=== PATIENT | male | born 1965 | race African-American/Black ===

== ENCOUNTER 2016-07-08 22:54 | Emergency (ER) | payer MEDICARE, OTHER ==
[~2016-07-08] VITALS: Ht 172.7 cm; Wt 70.0 kg
[~2016-07-08 22:54] MED LIST: BENZ1TAB PO; HALO5 PO; HALO5P IJ; LISI20 PO; NORC7.5T PO; OXYC1SOL5 PO
[2016-07-08 23:16] VITALS: BP 117/60; PULSE 85; RESP 15; TEMP 98.4; O2SAT 96
[2016-07-09] MEDS ORDERED: BENZ2TAB PO (04:50)
[2016-07-09] MEDS ORDERED: LISI-515 PO (04:50)
[2016-07-09] MEDS ORDERED: HALD50IN IM (04:50)
[2016-07-09] MEDS ORDERED: KETOROLAC TROMETHAMINE 60 MG/2 ML (IM) VIAL IM ONE (05:45)
--- NOTE | 2016-07-09 05:52 | PD ---
HPI Chief Complaint: GI Complaint Time Seen by Provider: 04:49 Travel History International Travel<30 days: No Contact w/Intl Traveler<30days: No Traveled to known affect area: No History of Present Illness HPI 50yo M with PMH of depression and bipolar disorder presents to the ED with c/o right lower back pain since 9pm last night. States pain is localized, constant and worst with movement. Pain is improved with acetaminophen and advil. Denies any fever, chest pain, sob, n/v, abdominal pain, focal weakness or numbness, trauma, or IVDA. PFSH Past Medical History Anemia: Yes Arthritis: No Asthma: No Autoimmune Disease: No Blood Disorders: Yes Bipolar Disorder: Yes Anxiety: Yes Depression: Yes Cancer: No Cardiovascular Problems: Yes (HTN) High Cholesterol: No Chest Pain: No Congestive Heart Failure: No COPD: No Cerebrovascular Accident: No Diabetes: Yes Patient Takes Glucophage: No Diminished Hearing: No Endocrine: No Gastrointestinal Disorders: No GERD: No Glaucoma: No Genitourinary: No Headaches: No Hepatitis: No Hiatal Hernia: No Hypertension: Yes Immune Disorder: No Implanted Vascular Access Dvce: No Kidney Stones: No Musculoskeletal: No Neurologic: No Psychiatric: Yes Reproductive: No Respiratory: No Integumentary: No Immunizations Current: Yes Migraines: No Myocardial Infarction: No Radiation Therapy: No Renal Failure: No Schizophrenia: Yes Seizures: No Sickle Cell Disease: Yes Sleep Apnea: No Thyroid Disease: No Ulcer: No PNEUMOCCOCAL Vaccine (Year): 3 Past Surgical History Abdominal Surgery: No AICD: No Appendectomy: No Arteriovenous Shunt: No Cardiac Surgery: No Cholecystectomy: No Ear Surgery: No Endocrine Surgery: No Eye Surgery: No Genitourinary Surgery: No Gynecologic Surgery: No Insulin Pump: No Joint Replacement: No Neurologic Surgery: No Oral Surgery: No Pacemaker: No Thoracic Surgery: No Other Surgery: Yes Social History Alcohol Use: Yes (beer ) Tobacco Use: Yes (1ppd) Substance Use: No Allergies-Medications (Allergen,Severity, Reaction): Coded Allergies: No Known Allergies (Verified , 07/09/16) Reported Meds & Prescriptions Reported Meds & Active Scripts Active Reported Lisinopril 20 Mg Tab 20 Mg PO DAILY Haldol Decanoate Inj (Haloperidol Decanoate) 50 Mg/Ml Inj 50 Mg IM Q28D Benztropine (Benztropine Mesylate) 2 Mg Tab 2 Mg PO BID Review of Systems Except as stated in HPI: all other systems reviewed are Neg Physical Exam Narrative GENERAL: 50yo M not in distress. SKIN: Focused skin assessment warm/dry. HEAD: Atraumatic. Normocephalic. CARDIOVASCULAR: Regular rate and rhythm. No murmur appreciated. RESPIRATORY: No accessory muscle use. Clear to auscultation. Breath sounds equal bilaterally. GASTROINTESTINAL: Abdomen soft, non-tender, nondistended. No rebound tenderness or guarding. BACK: No midline ttp thoracic or lumbar spine. No CVA tenderness. +TTP right paraspinal muscle L4-L5. MUSCULOSKELETAL: No obvious deformities. No clubbing. No cyanosis. No edema. NEUROLOGICAL: Awake and alert. No obvious cranial nerve deficits. Motor grossly within normal limits. Normal speech. PSYCHIATRIC: Appropriate mood and affect; insight and judgment normal. Data Data Last Documented VS Vital Signs Date Time Temp Pulse Resp B/P Pulse Ox O2 Delivery O2 Flow Rate FiO2 07/08/16 23:16 98.4 85 15 117/60 96 Room Air Orders Complete Blood Count With Diff (07/09/16 05:33) Basic Metabolic Panel (Bmp) (07/09/16 05:33) Urinalysis - C+S If Indicated (07/09/16 05:33) Ketorolac Inj (Toradol Inj) (07/09/16 05:45) Labs Laboratory Tests Test 07/09/16 07/09/16 05:33 05:50 White Blood Count 4.8 TH/MM3 Red Blood Count 4.16 MIL/MM3 Hemoglobin 12.6 GM/DL Hematocrit 37.3 % Mean Corpuscular Volume 89.8 FL Mean Corpuscular Hemoglobin 30.4 PG Mean Corpuscular Hemoglobin 33.8 % Concent Red Cell Distribution Width 14.7 % Platelet Count 222 TH/MM3 Mean Platelet Volume 8.1 FL Neutrophils (%) (Auto) 57.6 % Lymphocytes (%) (Auto) 30.4 % Monocytes (%) (Auto) 7.8 % Eosinophils (%) (Auto) 3.6 % Basophils (%) (Auto) 0.6 % Neutrophils # (Auto) 2.8 TH/MM3 Lymphocytes # (Auto) 1.5 TH/MM3 Monocytes # (Auto) 0.4 TH/MM3 Eosinophils # (Auto) 0.2 TH/MM3 Basophils # (Auto) 0.0 TH/MM3 CBC Comment DIFF FINAL Differential Comment Urine Color YELLOW Urine Turbidity CLEAR Urine pH 6.0 Urine Specific [place] 1.011 Urine Protein NEG mg/dL Urine Glucose (UA) NEG mg/dL Urine Ketones NEG mg/dL Urine Occult Blood NEG Urine Nitrite NEG Urine Bilirubin NEG Urine Urobilinogen LESS THAN 2.0 MG/DL Urine Leukocyte Esterase NEG Urine RBC LESS THAN 1 /hpf Urine WBC LESS THAN 1 /hpf Urine Squamous Epithelial <1 /hpf Cells Microscopic Urinalysis Comment CULT NOT INDICATED Sodium Level 140 MEQ/L Potassium Level 4.0 MEQ/L Chloride Level 107 MEQ/L Carbon Dioxide Level 27.0 MEQ/L Anion Gap 6 MEQ/L Blood Urea Nitrogen 11 MG/DL Creatinine 0.95 MG/DL Estimat Glomerular Filtration 102 ML/MIN Rate Random Glucose 89 MG/DL Calcium Level 9.3 MG/DL [facility] Medical Decision Making Medical Screen Exam Complete: Yes Emergency Medical Condition: Yes Interpretation(s) Laboratory Tests Test 07/09/16 07/09/16 05:33 05:50 White Blood Count 4.8 TH/MM3 (4.0-11.0) Red Blood Count 4.16 MIL/MM3 (4.50-5.90) Hemoglobin 12.6 GM/DL (13.0-17.0) Hematocrit 37.3 % (39.0-51.0) Mean Corpuscular Volume 89.8 FL (80.0-100.0) Mean Corpuscular Hemoglobin 30.4 PG (27.0-34.0) Mean Corpuscular Hemoglobin 33.8 % Concent (32.0-36.0) Red Cell Distribution Width 14.7 % (11.6-17.2) Platelet Count 222 TH/MM3 (150-450) Mean Platelet Volume 8.1 FL (7.0-11.0) Neutrophils (%) (Auto) 57.6 % (16.0-70.0) Lymphocytes (%) (Auto) 30.4 % (9.0-44.0) Monocytes (%) (Auto) 7.8 % (0.0-8.0) Eosinophils (%) (Auto) 3.6 % (0.0-4.0) Basophils (%) (Auto) 0.6 % (0.0-2.0) Neutrophils # (Auto) 2.8 TH/MM3 (1.8-7.7) Lymphocytes # (Auto) 1.5 TH/MM3 (1.0-4.8) Monocytes # (Auto) 0.4 TH/MM3 (0-0.9) Eosinophils # (Auto) 0.2 TH/MM3 (0-0.4) Basophils # (Auto) 0.0 TH/MM3 (0-0.2) CBC Comment DIFF FINAL Differential Comment Urine Color YELLOW (YELLW/STRAW) Urine Turbidity CLEAR (CLEAR) Urine pH 6.0 (5.0-8.5) Urine Specific [place] 1.011 (1.002-1.035) Urine Protein NEG mg/dL (NEG-TRACE) Urine Glucose (UA) NEG mg/dL (NEG) Urine Ketones NEG mg/dL (NEG) Urine Occult Blood NEG (NEG) Urine Nitrite NEG (NEG) Urine Bilirubin NEG (NEG) Urine Urobilinogen LESS THAN 2.0 MG/DL (LESS THAN 2.0) Urine Leukocyte Esterase NEG (NEG) Urine RBC LESS THAN 1 /hpf (0-3) Urine WBC LESS THAN 1 /hpf (0-5) Urine Squamous Epithelial <1 /hpf (0-5) Cells Microscopic Urinalysis Comment CULT NOT INDICATED Sodium Level 140 MEQ/L (136-145) Potassium Level 4.0 MEQ/L (3.5-5.1) Chloride Level 107 MEQ/L (98-107) Carbon Dioxide Level 27.0 MEQ/L (21.0-32.0) Anion Gap 6 MEQ/L (5-15) Blood Urea Nitrogen 11 MG/DL (7-18) Creatinine 0.95 MG/DL (0.60-1.30) Estimat Glomerular Filtration 102 ML/MIN Rate (>89) Random Glucose 89 MG/DL (74-106) Calcium Level 9.3 MG/DL (8.5-10.1) Differential Diagnosis Musculoskeletal pain vs. pyelonephritis vs. nephrolithiasis Narrative Course 50yo M with right lower back pain that seems very musculoskeletal. Labs reviewed, no leukocytosis. BMP unremarkable. UA shoed negative blood. Negative leukocyte. Pt reevaluated after toradol 30mg IM and feels better. VS stable. Diagnosis Primary Impression: Musculoskeletal pain Patient Instructions: General Instructions Departure Forms: Tests/Procedures Additional Instructions: Please follow up with your PMD in 3-7 days. Return to the ED if symptoms worsen. Disposition: 01 DISCHARGE HOME Condition: Stable Lamar Wheatley Jul 09, 2016 05:52
[2016-07-09 06:06] LABS: AUTOMATED NEUTROPHIL # 2.8 TH/MM3 (1.8-7.7); BASOPHIL % 0.6 % (0.0-2.0); EOSINOPHIL # 0.2 TH/MM3 (0-0.4); EOSINOPHIL % 3.6 % (0.0-4.0); HEMATOCRIT 37.3 % (39.0-51.0); HEMO FLAGS DIFF FINAL; LYMPH % 30.4 % (9.0-44.0); LYMPHOCYTE # 1.5 TH/MM3 (1.0-4.8); MEAN CELL VOLUME 89.8 FL (80.0-100.0); MEAN CORPUSCULAR HEMOGLOBIN 30.4 PG (27.0-34.0); MEAN CORPUSCULAR HGB CONC 33.8 % (32.0-36.0); MONO % 7.8 % (0.0-8.0); NEUT % 57.6 % (16.0-70.0); PLATELET COUNT 222 TH/MM3 (150-450); RED BLOOD COUNT 4.16 MIL/MM3 (4.50-5.90); RED CELL DISTRIBUTION WIDTH 14.7 % (11.6-17.2); WHITE BLOOD COUNT 4.8 TH/MM3 (4.0-11.0)
[2016-07-09 06:14] LABS: BLOOD, URINE NEG (NEG); GLUCOSE,URINE NEG (NEG); KETONE, URINE NEG (NEG); NITRITE,URINE NEG (NEG); SQUAMOUS EPITHELIAL CELL URINE <1 /hpf (0-5); URINE COLOR YELLOW (YELLW/STRAW)
[2016-07-09 06:15] LABS: COMMENT (UR) CULT NOT INDICATED; CULTURE IF INDICATED CULT NOT INDICATED
[2016-07-10] MEDS ORDERED: LAMI1SPR TOPICAL (02:38)
== END 2016-07-09 08:48 | disposition home or self-care (01) ==
LOC: NEPC 22:54
DX: M79.1 Myalgia (principal); E11.9 Type 2 diabetes mellitus without complications; I10 Essential (primary) hypertension; F20.9 Schizophrenia, unspecified; F31.9 Bipolar disorder, unspecified; F41.8 Other specified anxiety disorders; F17.210 Nicotine dependence, cigarettes, uncomplicated
CPT/HCPCS: 80048; 81001; 85025; 96372; 99283; J1885

== ENCOUNTER 2016-07-10 01:41 | Emergency (ER) | payer MEDICARE ==
[~2016-07-10] VITALS: Ht 177.8 cm; Wt 65.0 kg
[~2016-07-10 01:41] MED LIST changes: -BENZ1TAB PO; +BENZ2TAB PO; +HALD50IN IM; -HALO5 PO; -HALO5P IJ; +LISI-515 PO; -LISI20 PO; -NORC7.5T PO; -OXYC1SOL5 PO
[2016-07-10 01:43] VITALS: BP 140/74; PULSE 82; RESP 16; TEMP 98.4; O2SAT 98
[2016-07-10] MEDS ORDERED: LAMI1SPR TOPICAL (02:38)
--- NOTE | 2016-07-10 02:41 | PD ---
HPI Chief Complaint: Skin Problem Time Seen by Provider: 02:39 Travel History International Travel<30 days: No Contact w/Intl Traveler<30days: No Traveled to known affect area: No History of Present Illness HPI 50-year-old black male presents to emergency department with complaints of a pruritic rash to his feet. He states that this is been present for quite some time. He denies any fever or chills. No drainage. Symptoms are moderate. PFSH Past Medical History Anemia: Yes Arthritis: No Asthma: No Autoimmune Disease: No Blood Disorders: Yes Bipolar Disorder: Yes Anxiety: Yes Depression: Yes Cancer: No Cardiovascular Problems: Yes (HTN) High Cholesterol: No Chest Pain: No Congestive Heart Failure: No COPD: No Cerebrovascular Accident: No Diabetes: Yes Patient Takes Glucophage: No Diminished Hearing: No Endocrine: No Gastrointestinal Disorders: No GERD: No Glaucoma: No Genitourinary: No Headaches: No Hepatitis: No Hiatal Hernia: No Hypertension: Yes Immune Disorder: No Implanted Vascular Access Dvce: No Kidney Stones: No Musculoskeletal: No Neurologic: No Psychiatric: Yes Reproductive: No Respiratory: No Integumentary: No Immunizations Current: Yes Migraines: No Myocardial Infarction: No Radiation Therapy: No Renal Failure: No Schizophrenia: Yes Seizures: No Sickle Cell Disease: Yes Sleep Apnea: No Thyroid Disease: No Ulcer: No Tetanus Vaccination: Unknown PNEUMOCCOCAL Vaccine (Year): 3 Past Surgical History Abdominal Surgery: No AICD: No Appendectomy: No Arteriovenous Shunt: No Cardiac Surgery: No Cholecystectomy: No Ear Surgery: No Endocrine Surgery: No Eye Surgery: No Genitourinary Surgery: No Gynecologic Surgery: No Insulin Pump: No Joint Replacement: No Neurologic Surgery: No Oral Surgery: No Pacemaker: No Thoracic Surgery: No Other Surgery: Yes Social History Alcohol Use: Yes (beer ) Tobacco Use: Yes (1ppd) Substance Use: Yes ("weed") Allergies-Medications (Allergen,Severity, Reaction): Coded Allergies: No Known Allergies (Verified , 07/09/16) Reported Meds & Prescriptions Reported Meds & Active Scripts Active Lamisil At Topical (Terbinafine Topical) 1 % [place] 1 Applic TOPICAL BID Reported Lisinopril 20 Mg Tab 20 Mg PO DAILY Haldol Decanoate Inj (Haloperidol Decanoate) 50 Mg/Ml Inj 50 Mg IM Q28D Benztropine (Benztropine Mesylate) 2 Mg Tab 2 Mg PO BID Review of Systems Except as stated in HPI: all other systems reviewed are Neg Physical Exam Narrative GENERAL: This is a well-nourished, well-developed patient, in no apparent distress. SKIN: Patient has a scaly dermatitis to the interdigital spaces of his toes and on the lateral borders of his feet. Consistent with tinea. HEAD: Atraumatic. Normocephalic. EYES: PERRL, EOMI, no discharge or injection. No scleral icterus. EARS: Clear NOSE: Nasal turbinates appear normal. THROAT: Mucosa pink and moist. Airway patent. NECK: Trachea midline. supple, moves head freely. LUNGS: Clear to auscultation. CV: Regular in rhythm. ABDOMEN: Soft nontender. EXT: No clubbing cyanosis or edema. Data Data Last Documented VS Vital Signs Date Time Temp Pulse Resp B/P Pulse Ox O2 Delivery O2 Flow Rate FiO2 07/10/16 01:43 98.4 82 16 140/74 98 [facility] Medical Decision Making Medical Screen Exam Complete: Yes Emergency Medical Condition: Yes Medical Record Reviewed: Yes Differential Diagnosis MDM: High Differential diagnoses: Abscess, folliculitis, cellulitis, lymphangitis, abrasion, contact dermatitis, tinea pedis Narrative Course This is tinea pedis Diagnosis Primary Impression: Tinea pedis Qualified Code: B35.3 - Tinea pedis of both feet Patient Instructions: General Instructions Additional Instructions: Rest. Elevation. keep clean and dry. Lamisil Follow-up with a primary care doctor in one week. Return to the ER for any problems. Med/Other Pt SpecificInfo: Prescription(s) given Scripts Terbinafine Topical (Lamisil At Topical)1 % Spray1 Applic TOPICAL BID #1 BOTTLE Ref 0 Prov:Lola Herrera MD 07/10/16 Disposition: 01 DISCHARGE HOME Condition: Stable Jak Solano Jul 10, 2016 02:41
== END 2016-07-10 02:58 | disposition home or self-care (01) ==
LOC: NEPD 01:41
DX: B35.3 Tinea pedis (principal)
CPT/HCPCS: 99283

== ENCOUNTER 2016-07-12 07:56 | Emergency (ER) | payer MEDICARE, OTHER ==
[~2016-07-12] VITALS: Ht 177.8 cm; Wt 65.0 kg
[~2016-07-12 07:56] MED LIST changes: +LAMI1SPR TOPICAL
[2016-07-12 07:58] VITALS: BP 157/76; PULSE 83; RESP 15; TEMP 98.2; O2SAT 98
--- NOTE | 2016-07-12 08:21 | PD ---
HPI Chief Complaint: Foreign Body Time Seen by Provider: 08:21 Travel History International Travel<30 days: No Contact w/Intl Traveler<30days: No Traveled to known affect area: No History of Present Illness HPI 50-year-old male presents to the emergency Department with complaint of something in his eye since last night. He thinks maybe it's an eyelash. Reports watery drainage. Denies fever, vomiting. Says he can't open his eye as it is sensitive to light and painful. He has been rubbing his eye trying to get whatever is in there out. Patient is also stating that he is suicidal and wants to take a razor blade and slit his wrists because he has nothing to live for. He is supposed to be taking Cogentin and Haldol and says he hasn't taken it in a few days. He says he is in a crisis and needs help. Reports auditory hallucinations. Denies visual hallucinations. Denies homicidal ideation. No known allergies. Has no other medical complaints. No other modifying factors or associated signs and symptoms. PFSH Past Medical History Anemia: Yes Arthritis: No Asthma: No Autoimmune Disease: No Blood Disorders: Yes Bipolar Disorder: Yes Anxiety: Yes Depression: Yes Cancer: No Cardiovascular Problems: Yes (HTN) High Cholesterol: No Chest Pain: No Congestive Heart Failure: No COPD: No Cerebrovascular Accident: No Diabetes: Yes Diminished Hearing: No Endocrine: No Gastrointestinal Disorders: No GERD: No Glaucoma: No Genitourinary: No Headaches: No Hepatitis: No Hiatal Hernia: No Hypertension: Yes Immune Disorder: No Implanted Vascular Access Dvce: No Kidney Stones: No Musculoskeletal: No Neurologic: No Psychiatric: Yes Reproductive: No Respiratory: No Integumentary: No Immunizations Current: Yes Migraines: No Myocardial Infarction: No Radiation Therapy: No Renal Failure: No Schizophrenia: Yes Seizures: No Sickle Cell Disease: Yes Sleep Apnea: No Thyroid Disease: No Ulcer: No PNEUMOCCOCAL Vaccine (Year): 3 Past Surgical History Abdominal Surgery: No AICD: No Appendectomy: No Arteriovenous Shunt: No Cardiac Surgery: No Cholecystectomy: No Ear Surgery: No Endocrine Surgery: No Eye Surgery: No Genitourinary Surgery: No Gynecologic Surgery: No Insulin Pump: No Joint Replacement: No Neurologic Surgery: No Oral Surgery: No Pacemaker: No Thoracic Surgery: No Other Surgery: Yes Social History Alcohol Use: Yes (beer ) Tobacco Use: Yes (1ppd) Substance Use: Yes ("weed") Allergies-Medications (Allergen,Severity, Reaction): Coded Allergies: No Known Allergies (Verified , 07/12/16) Reported Meds & Prescriptions Reported Meds & Active Scripts Active Ibuprofen 800 Mg Tab 800 Mg PO Q6HR PRN Erythromycin Opth Oint 5 Mg/Gm Oint 1 Applic RIGHT EYE QID 7 Days Reported Lisinopril 20 Mg Tab 20 Mg PO DAILY Haldol Decanoate Inj (Haloperidol Decanoate) 50 Mg/Ml Inj 50 Mg IM Q28D Benztropine (Benztropine Mesylate) 2 Mg Tab 2 Mg PO BID Review of Systems Except as stated in HPI: all other systems reviewed are Neg Physical Exam Narrative GENERAL: Well-nourished, well-developed patient, in no acute distress afebrile, nontoxic-appearing; disheveled and foul smelling SKIN: Warm and dry. HEAD: Atraumatic. Normocephalic. EYES: Pupils equal and round at 3 mm with brisk reaction. PERRLA. EOMI. right lid eversion with no foreign body noted. Right eye with scleral erythema and mild lid edema. No orbital tenderness, erythema or cellulitis. Right eye with photophobia. No consensual photophobia. No scleral icterus. Clear drainage. Swan lamp exam reveals a corneal abrasion at the 7 to 8 o'clock position to the sclera area, outside of the iris. ENT: Mucosa pink and moist. Airway patent. NECK: Trachea midline. CARDIOVASCULAR: Regular rate. RESPIRATORY: No accessory muscle use. GASTROINTESTINAL: Flat. NEUROLOGICAL: Awake and alert. Oriented 3. No obvious cranial nerve deficits. Motor grossly within normal limits. Normal speech. PSYCHIATRIC: Appropriate mood and affect; insight and judgment normal. Data Data Last Documented VS Vital Signs Date Time Temp Pulse Resp B/P Pulse Ox O2 Delivery O2 Flow Rate FiO2 07/12/16 07:58 98.2 83 15 157/76 98 Orders Psych Screen (07/12/16 08:22) Drug Screen, Random Urine (07/12/16 08:22) Alcohol (Ethanol) (07/12/16 08:22) Salicylates (Aspirin) (07/12/16 08:22) Tylenol (Acetaminophen) (07/12/16 08:22) Proparacaine 0.5% Opth Soln (Alcaine 0.5 (07/12/16 08:30) Erythromycin 0.5% Opth Oint (Ilotycin 0. (07/12/16 08:45) Ibuprofen (Motrin) (07/12/16 08:45) [facility] Medical Decision Making Medical Screen Exam Complete: Yes Emergency Medical Condition: Yes Medical Record Reviewed: Yes Differential Diagnosis Corneal abrasion, foreign body, medical clearance for psych evaluation, suicidal threat, suicidal ideation Narrative Course 50-year-old disheveled, homeless male physical exam consistent with a right eye corneal abrasion. The patient is disheveled and his face is full of sand. I'm assuming he had sand get into his eye and he rubbed it causing the corneal abrasion. The patient is also stating he is suicidal and wants to slit his wrists with a razor blade. The patient was seen here on July 09 and labs were done and CBC, BMP, urinalysis were all unremarkable. I do not feel it is necessary to repeat labs at this time. Psych screen, EtOH, drug screen, Tylenol and salicylate ordered. Erythromycin ordered to right eye. Ibuprofen ordered. Patient presents voluntarily for psych evaluation. Physical examination and vital signs are essentially unremarkable. Patient has no medical complaints to report. Psych screen has been ordered. If the laboratory results are unremarkable, the patient will be medically cleared for psychiatric evaluation and disposition. Diagnosis Primary Impression: Corneal abrasion, right Qualified Code: S05.01XA - Corneal abrasion, right, initial encounter Additional Impression: Encounter for psychiatric assessment Med/Other Pt SpecificInfo: Prescription(s) given Scripts Ibuprofen 800 Mg Qld090 Mg PO Q6HR PRN (PAIN) #30 TAB Ref 0 Prov:Pilar Aguirre 07/12/16 Erythromycin Opth Oint 5 Mg/Gm Oint1 Applic RIGHT EYE QID 7 Days Ref 0 Prov:Pilar Aguirre 07/12/16 Condition: Stable Pilar Aguirre July 12, 2016 08:21
[2016-07-12] MEDS ORDERED: PROPARACAINE HCL 0.5% OPHT SOLN 15 ML BTL RIGHT EYE ONE (08:30)
[2016-07-12] MEDS ORDERED: IBUP800T23 PO (08:32)
[2016-07-12] MEDS ORDERED: ERYTOIN10 RIGHT EYE (08:32)
[2016-07-12] MEDS ORDERED: IBUPROFEN 800 MG TAB PO ONE (08:45)
[2016-07-12] MEDS: ERYTHROMYCIN 0.5% OPTH OINT 3.5 GM TUBO RIGHT EYE SCH ×3 (09:06→18:00)
[2016-07-12 10:00] VITALS: BP 140/76; PULSE 76; RESP 17; TEMP 97.8; O2SAT 99
[2016-07-12 10:35] LABS: AMPHETAMINE, URINE NEG (NEG); BARBITURATES, URINE NEG (NEG); COCAINE, URINE NEG (NEG)
[2016-07-12 10:42] LABS: BICARBONATE 27.8 MEQ/L (21.0-32.0)
[2016-07-12 10:43] LABS: AUTOMATED NEUTROPHIL # 4.6 TH/MM3 (1.8-7.7); BASOPHIL % 0.5 % (0.0-2.0); EOSINOPHIL # 0.2 TH/MM3 (0-0.4); EOSINOPHIL % 2.4 % (0.0-4.0); HEMATOCRIT 39.3 % (39.0-51.0); HEMO FLAGS DIFF FINAL; LYMPH % 23.7 % (9.0-44.0); LYMPHOCYTE # 1.6 TH/MM3 (1.0-4.8); MEAN CELL VOLUME 90.7 FL (80.0-100.0); MEAN CORPUSCULAR HEMOGLOBIN 30.5 PG (27.0-34.0); MEAN CORPUSCULAR HGB CONC 33.6 % (32.0-36.0); MONO % 6.6 % (0.0-8.0); NEUT % 66.8 % (16.0-70.0); PLATELET COUNT 237 TH/MM3 (150-450); RED BLOOD COUNT 4.34 MIL/MM3 (4.50-5.90); RED CELL DISTRIBUTION WIDTH 14.5 % (11.6-17.2); WHITE BLOOD COUNT 6.9 TH/MM3 (4.0-11.0)
[2016-07-12 14:30] VITALS: BP 111/68; PULSE 71; RESP 18; TEMP 98.4; O2SAT 98
[2016-07-12 17:00] VITALS: BP 111/68; PULSE 71; RESP 18; TEMP 98.4; O2SAT 98
[2016-07-12 18:11] VITALS: BP 95/59; PULSE 88; RESP 18; O2SAT 97
[2016-07-12 22:34] VITALS: BP 130/90; PULSE 59; RESP 18; O2SAT 99
[2016-07-13 02:00] VITALS: BP 118/66; PULSE 76; RESP 18; O2SAT 100
[2016-07-13] MEDS ORDERED: HALOPERIDOL LACTATE 5 MG/ML AMP IM ONE (03:45)
[2016-07-13] MEDS ORDERED: diphenhydrAMINE HCL 50 MG/ML VIAL IM ONE (03:45)
[2016-07-13] MEDS: ERYTHROMYCIN 0.5% OPTH OINT 3.5 GM TUBO RIGHT EYE SCH ×2 (06:00)
[2016-07-13 06:23] VITALS: BP 109/59; PULSE 55; RESP 16; O2SAT 99
[2016-07-13 09:37] VITALS: BP 109/59; PULSE 55; RESP 16; TEMP 98.2; O2SAT 98
[2016-07-13 09:40] VITALS: BP 109/55; TEMP 98.2
--- NOTE | 2016-07-13 12:14 | PD.CONS ---
Provisional Diagnosis Admission Date [place]. Bipolar disorder History of Present Illness Service Psychiatry Consult Requested By Primary Care Physician No Primary Care Physician HPI The patient is a 50-year-old man, domiciled alone, single, with psychiatric history bipolar disorder, previous psychiatric hospitalizations , no significant medical history, who presents to the emergency Department with complaint of something in his eye since last night. He thinks maybe it's an eyelash. Patient is also stating that he is suicidal and wants to take a razor blade and slit his wrists because he has nothing to live for. He is supposed to be taking Cogentin and Haldol and says he hasn't taken it in a few days. Patient was transferred to [facility] for psychiatric evaluation. No psychotic evaluation patient denies that he endorsed suicidal ideation. He says that he has too many things to live for, he says that he has never tried to commit suicide in the past. However, he does report history of self cutting behavior. But usually self cutting is to release stress. He denies depression, denies anxiety, he denies manic, he denies psychosis. He denies suicidal or homicidal ideation, he denies visual and auditory hallucinations. Review of Systems Constitutional: DENIES: Diaphoretic episodes, Fatigue, Fever, Weight gain, Weight loss, Chills, Dizziness, Change in appetite, Night Sweats Eyes: DENIES: Blurred vision, Diplopia, Eye inflammation, Eye pain, Vision loss , Photosensitivity, Double Vision Ears, nose, mouth, throat: DENIES: Tinnitus, Hearing loss, Vertigo, Nasal discharge, Oral lesions, Throat pain, Hoarseness, Ear Pain, Running Nose, Epistaxis, Sinus Pain, Toothache, Odynophagia Respiratory: DENIES: Apneas, Cough, Snoring, Wheezing, Hemoptysis, Sputum production, Shortness of breath Cardiovascular: DENIES: Chest pain, Palpitations, Syncope, Dyspnea on Exertion , PND, Lower Extremity Edema, Orthopnea, Claudication Genitourinary: DENIES: Sexual dysfunction, Urinary frequency, Urinary incontinence, Urgency, Hematuria, Dysuria, Nocturia, Penile Discharge, Testicular Pain, Testicular Swelling Musculoskeletal: DENIES: Joint pain, Muscle aches, Stiffness, Joint Swelling, Back pain, Neck pain Integumentary: DENIES: Abnormal pigmentation, Nail changes, Pruritus, Rash Hematologic/lymphatic: DENIES: Bruising, Lymphadenopathy Neurologic: DENIES: Abnormal gait, Headache, Localized weakness, Paresthesias, Seizures, Speech Problems, Tremor, Poor Balance Psychiatric: DENIES: Anxiety, Confusion, Mood changes, Depression, Hallucinations, Agitation, Suicidal Ideation, Homicidal Ideation, Delusions Past Family Social History Coded Allergies: No Known Allergies (Verified , 07/12/16) Active Scripts Ibuprofen 800 Mg [id number] Mg PO Q6HR PRN (PAIN) #30 TAB Ref 0 Prov:Pilar Aguirre WRITING TUTOR 07/12/16 Erythromycin Opth Oint 5 Mg/Gm Oint1 Applic RIGHT EYE QID 7 Days Ref 0 Prov:Pilar Aguirre WRITING TUTOR 07/12/16 Reported Medications Lisinopril 20 Mg Tab20 Mg PO DAILY #30 TAB Ref 0 07/09/16 Haloperidol Decanoate Inj (Haldol Decanoate Inj)50 Mg/Ml Inj50 Mg IM Q28D #1 VIAL Ref 0 07/09/16 Benztropine 2 Mg Tab2 Mg PO BID #60 TAB Ref 0 07/09/16 Discontinued Scripts Terbinafine Topical (Lamisil At Topical)1 % Spray1 Applic TOPICAL BID #1 BOTTLE Ref 0 Prov:Lola Herrera MD 07/10/16 Family History Patient denies psychiatric family history Social History Patient was born and raised in [place], he has been living in [place] for 15 years, single, unemployed Physical Exam Vital Signs Vital Signs Date Time Temp Pulse Resp B/P Pulse Ox O2 Delivery O2 Flow Rate FiO2 07/13/16 09:40 98.2 58 18 109/55 98 07/13/16 06:23 Room Air I/O 07/12/16 07/12/16 07/13/16 08:00 16:00 00:00 Intake Total 300 ml Balance 300 ml Mental Status Examination Speech: Unremarkable Orientation: x3 Memory: Unremarkable Thought Process: Logical Thought Content: Unremarkable Hallucination Type: None Suicidal Ideation: No Previous Suicide Attempts: No Previous Homicide Attempts: No Judgment: WNL Affect: Good Mood: Appropriate Assessment & Plan Problem List: (1) schizophrenia Assessment & Plan: Patient does not present any evidence of depression, psychosis, rafael, denies suicidal or homicidal ideation, denies visual and auditory hallucinations. Patient does not meet criteria for psychiatric admission at this moment. Assessment & Plan Estimated LOS: days Herbie Campos. MD July 13, 2016 12:14
== END 2016-07-13 09:25 | disposition home or self-care (01) ==
LOC: NEPC 07:56 → NEPJ 07-13 09:25
DX: S05.01XA Injury of conjunctiva and corneal abrasion without foreign body, right eye, initial encounter (principal); F20.9 Schizophrenia, unspecified; F31.9 Bipolar disorder, unspecified; F17.210 Nicotine dependence, cigarettes, uncomplicated; F12.90 Cannabis use, unspecified, uncomplicated; X58.XXXA Exposure to other specified factors, initial encounter; R45.851 Suicidal ideations
CPT/HCPCS: 80048; 80307; 85025; 96372; 99283; J1200; J1630

== ENCOUNTER 2016-07-13 19:51 | Emergency (ER) | payer MEDICARE ==
[~2016-07-13 19:51] MED LIST changes: +ERYTOIN10 RIGHT EYE; +IBUP800T23 PO; -LAMI1SPR TOPICAL
[2016-07-13 19:53] VITALS: BP 137/84; PULSE 95; RESP 14; TEMP 97.7; O2SAT 97
--- NOTE | 2016-07-13 20:12 | PD ---
Physical Exam Time Seen by Provider: 20:11 Narrative 50 y/o male here for evaluation of h/a which started 30 minutes ago. Seen yesterday by psychiatry and also dx with a corneal abrasion. vital signs reviewed. Seen at triage desk. Awaiting bed placement. Data Data Last Documented VS Vital Signs Date Time Temp Pulse Resp B/P Pulse Ox O2 Delivery O2 Flow Rate FiO2 07/13/16 19:53 97.7 95 14 137/84 97 Room Air [facility] Medical Record Reviewed: Yes Supervised Visit with JU: Terrell Borden July 13, 2016 20:12
[2016-07-13] MEDS ORDERED: IBUPROFEN 600 MG TAB PO ONE (21:45)
--- NOTE | 2016-07-13 21:48 | PD ---
HPI Chief Complaint: Headache Time Seen by Provider: 21:33 Travel History International Travel<30 days: No Contact w/Intl Traveler<30days: No Traveled to known affect area: No History of Present Illness HPI Patient is a 50-year-old male who presents to emergency room with complaints of headache. Patient reports that his headache began 30 minutes prior to arrival to emergency room, patient reports that he did not have any Tylenol or ibuprofen at home so he decided to come to the emergency room for medication. Patient reports that his headache is typical of her normal headaches, denies that this is the worst headache of his life. Reports that the headache is frontal in nature. Patient with no photophobia, vision changes or nausea or vomiting with symptoms. Denies thunderclap headache. PFSH Past Medical History Anemia: Yes Arthritis: No Asthma: No Autoimmune Disease: No Blood Disorders: Yes Bipolar Disorder: Yes Anxiety: Yes Depression: Yes Cancer: No Cardiovascular Problems: Yes (HTN) High Cholesterol: No Chest Pain: No Congestive Heart Failure: No COPD: No Cerebrovascular Accident: No Diabetes: Yes Diminished Hearing: No Endocrine: No Gastrointestinal Disorders: No GERD: No Glaucoma: No Genitourinary: No Headaches: No Hepatitis: No Hiatal Hernia: No Hypertension: Yes Immune Disorder: No Implanted Vascular Access Dvce: No Kidney Stones: No Musculoskeletal: No Neurologic: No Psychiatric: Yes Reproductive: No Respiratory: No Integumentary: No Immunizations Current: Yes Migraines: No Myocardial Infarction: No Radiation Therapy: No Renal Failure: No Schizophrenia: Yes Seizures: No Sickle Cell Disease: Yes Sleep Apnea: No Thyroid Disease: No Ulcer: No PNEUMOCCOCAL Vaccine (Year): 3 Past Surgical History Abdominal Surgery: No AICD: No Appendectomy: No Arteriovenous Shunt: No Cardiac Surgery: No Cholecystectomy: No Ear Surgery: No Endocrine Surgery: No Eye Surgery: No Genitourinary Surgery: No Gynecologic Surgery: No Insulin Pump: No Joint Replacement: No Neurologic Surgery: No Oral Surgery: No Pacemaker: No Thoracic Surgery: No Other Surgery: Yes Social History Alcohol Use: Yes (beer ) Tobacco Use: Yes (1ppd) Substance Use: Yes Allergies-Medications (Allergen,Severity, Reaction): Coded Allergies: No Known Allergies (Verified , 07/13/16) Reported Meds & Prescriptions Reported Meds & Active Scripts Active Ibuprofen 800 Mg Tab 800 Mg PO Q6HR PRN Erythromycin Opth Oint 5 Mg/Gm Oint 1 Applic RIGHT EYE QID 7 Days Reported Lisinopril 20 Mg Tab 20 Mg PO DAILY Haldol Decanoate Inj (Haloperidol Decanoate) 50 Mg/Ml Inj 50 Mg IM Q28D Benztropine (Benztropine Mesylate) 2 Mg Tab 2 Mg PO BID Review of Systems General / Constitutional: No: Fever Eyes: No: Visual changes HENT: Positive: Headaches Cardiovascular: No: Chest Pain or Discomfort Respiratory: No: Shortness of Breath Gastrointestinal: No: Abdominal Pain Genitourinary: No: Dysuria Musculoskeletal: No: Pain Skin: No Rash Neurologic: Positive: Headache, No: Weakness Psychiatric: No: Depression Endocrine: No: Polydipsia Hematologic/Lymphatic: No: Easy Bruising Physical Exam Narrative GENERAL: No acute distress, nontoxic SKIN: Focused skin assessment warm/dry. HEAD: Atraumatic. Normocephalic. EYES: Pupils equal and round. No scleral icterus. No injection or drainage. ENT: No nasal bleeding or discharge. Mucous membranes pink and moist. NECK: Trachea midline. No JVD. CARDIOVASCULAR: Regular rate and rhythm. No murmur appreciated. RESPIRATORY: No accessory muscle use. Clear to auscultation. Breath sounds equal bilaterally. GASTROINTESTINAL: Abdomen soft, non-tender, nondistended. Hepatic and splenic margins not palpable. MUSCULOSKELETAL: No obvious deformities. No clubbing. No cyanosis. No edema. NEUROLOGICAL: Awake and alert. No obvious cranial nerve deficits. Motor grossly within normal limits. Normal speech. PSYCHIATRIC: Appropriate mood and affect; insight and judgment normal. Data Data Last Documented VS Vital Signs Date Time Temp Pulse Resp B/P Pulse Ox O2 Delivery O2 Flow Rate FiO2 07/13/16 19:53 97.7 95 14 137/84 97 Room Air Orders Ibuprofen (Motrin) (07/13/16 21:45) [facility] Medical Decision Making Medical Screen Exam Complete: Yes Emergency Medical Condition: Yes Interpretation(s) Vital Signs Date Time Temp Pulse Resp B/P Pulse Ox O2 Delivery O2 Flow Rate FiO2 07/13/16 19:53 97.7 95 14 137/84 97 Room Air Differential Diagnosis Cephalgia Narrative Course Patient is a 50-year-old male who presents to emergency room with complaints of headache which began 30 minutes prior to arrival to emergency room. He is here for ibuprofen as he does not have any medications at home for his headache. Patient reports that this is a typical headache for him, no vision changes, no nausea or vomiting with symptoms. Patient with benign neuro exam. Plan to give him ibuprofen and re-evaluate him. I do not believe that patient has any acute intracranial pathology at this time as he is well appearing and nontoxic. He is only requesting acetaminophen or Tylenol at this time. Patient was given ibuprofen, patient reports complete resolution of symptoms at this time. Patient walking around ER with normal gait, patient nontoxic. Patient thankful for care. Diagnosis Primary Impression: Cephalgia Qualified Code: R51 - Acute nonintractable headache, unspecified headache type Patient Instructions: General Instructions Additional Instructions: Please follow-up with your primary care doctor and return to the emergency room as needed Disposition: 01 DISCHARGE HOME Condition: Stable Razia Ponce DO July 13, 2016 21:48
== END 2016-07-13 22:59 | disposition home or self-care (01) ==
LOC: NEPD 19:51
DX: R51 Headache (principal)
CPT/HCPCS: 99283

== ENCOUNTER 2016-07-15 02:12 | Emergency (ER) | payer MEDICARE ==
[~2016-07-15] VITALS: Ht 180.3 cm; Wt 67.0 kg
[2016-07-15 02:16] VITALS: BP 114/72; PULSE 88; RESP 14; TEMP 98.7; O2SAT 97
--- NOTE | 2016-07-15 02:49 | PD ---
HPI Chief Complaint: Hip Injury Time Seen by Provider: 02:41 Travel History International Travel<30 days: No Contact w/Intl Traveler<30days: No Traveled to known affect area: No History of Present Illness HPI 50-year-old male here for evaluation of right hip pain. Patient states that his right hip began hurting him about an hour ago. He denies any trauma. No fevers. No urinary or bowel incontinence or retention. Pain is moderate, worse with movements. He is able to ambulate. PFSH Past Medical History Anemia: Yes Arthritis: No Asthma: No Autoimmune Disease: No Blood Disorders: Yes Bipolar Disorder: Yes Anxiety: Yes Depression: Yes Cancer: No Cardiovascular Problems: Yes (HTN) High Cholesterol: No Chest Pain: No Congestive Heart Failure: No COPD: No Cerebrovascular Accident: No Diabetes: Yes Patient Takes Glucophage: No Diminished Hearing: No Endocrine: No Gastrointestinal Disorders: No GERD: No Glaucoma: No Genitourinary: No Headaches: No Hepatitis: No Hiatal Hernia: No Heparin Induced Thrombocytopen: No Hypertension: Yes Immune Disorder: No Implanted Vascular Access Dvce: No Kidney Stones: No Musculoskeletal: No Neurologic: No Psychiatric: Yes Reproductive: No Respiratory: No Integumentary: No Immunizations Current: Yes Migraines: No Myocardial Infarction: No Radiation Therapy: No Renal Failure: No Schizophrenia: Yes Seizures: No Sickle Cell Disease: Yes Sleep Apnea: No Thyroid Disease: No Ulcer: No Influenza Vaccination: No PNEUMOCCOCAL Vaccine (Year): 3 Past Surgical History Abdominal Surgery: No AICD: No Appendectomy: No Arteriovenous Shunt: No Cardiac Surgery: No Cholecystectomy: No Ear Surgery: No Endocrine Surgery: No Eye Surgery: No Genitourinary Surgery: No Gynecologic Surgery: No Insulin Pump: No Joint Replacement: No Neurologic Surgery: No Oral Surgery: No Pacemaker: No Thoracic Surgery: No Other Surgery: Yes Social History Alcohol Use: Yes (beer ) Tobacco Use: Yes (1ppd) Substance Use: Yes (pt denies ) Allergies-Medications (Allergen,Severity, Reaction): Coded Allergies: No Known Allergies (Verified , 07/15/16) Reported Meds & Prescriptions Reported Meds & Active Scripts Active Ibuprofen 800 Mg Tab 800 Mg PO Q6HR PRN Erythromycin Opth Oint 5 Mg/Gm Oint 1 Applic RIGHT EYE QID 7 Days Reported Lisinopril 20 Mg Tab 20 Mg PO DAILY Haldol Decanoate Inj (Haloperidol Decanoate) 50 Mg/Ml Inj 50 Mg IM Q28D Benztropine (Benztropine Mesylate) 2 Mg Tab 2 Mg PO BID Review of Systems Except as stated in HPI: all other systems reviewed are Neg Physical Exam Narrative GENERAL: Pleasant, well-developed, well-nourished, comfortable, no acute distress. SKIN: Focused skin assessment warm/dry. No rash. HEAD: Atraumatic. Normocephalic. EYES: Pupils equal and round. No scleral icterus. No injection or drainage. ENT: Mucous membranes pink and moist. NECK: Trachea midline. No JVD. CARDIOVASCULAR: Regular rate and rhythm. RESPIRATORY: No accessory muscle use. Clear to auscultation. Breath sounds equal bilaterally. GASTROINTESTINAL: Abdomen soft, non-tender, nondistended. MUSCULOSKELETAL: Mild right lateral hip and right SI joint tenderness with normal range of motion, without warmth or erythema. All other joints and extremities are without deformity, without tenderness, with normal range of motion. No midline vertebral step-off or tenderness. NEUROLOGICAL: Awake and alert. No obvious cranial nerve deficits. Motor grossly within normal limits. Normal speech. PSYCHIATRIC: Appropriate mood and affect; insight and judgment normal. Data Data Last Documented VS Vital Signs Date Time Temp Pulse Resp B/P Pulse Ox O2 Delivery O2 Flow Rate FiO2 07/15/16 02:16 98.7 88 14 114/72 97 Room Air Orders Ketorolac Inj (Toradol Inj) (07/15/16 03:00) Hip, Uni(Ap&Lat) W Ap Pelvis (07/15/16 ) MDM Medical Decision Making Medical Screen Exam Complete: Yes Emergency Medical Condition: Yes Differential Diagnosis Osteoarthritis, musculoskeletal pain, septic arthritis not likely Narrative Course Vital signs are within normal limits. Right hip and pelvis x-ray: Mild degenerative change without fracture. Patient was given Toradol and on reassessment he is sleeping comfortably. He was made aware of his x-ray findings. He admits to being homeless and does not have a primary care physician. I will give him the information to the [facility] to follow-up with. He is stable for discharge home Diagnosis Primary Impression: Right hip pain Referrals: [facility] 1 day Additional Instructions: Follow-up with a primary care physician this week. Return to the emergency department for worsening symptoms or any other concerns. Disposition: DISCHARGE HOME Condition: Stable Ravinder Tobin MD July 15, 2016 02:49
[2016-07-15] MEDS ORDERED: KETOROLAC TROMETHAMINE 60 MG/2 ML (IM) VIAL IM ONE (03:00)
--- NOTE | 2016-07-15 03:34 | RADRPT ---
EXAM DATE/TIME: 07/15/2016 02:59 [place] COMPARISON: No previous studies available for comparison. INDICATIONS : Right hip pain. MEDICAL HISTORY : None. SURGICAL HISTORY : None. ENCOUNTER: Initial ACUITY: 1 day PAIN SCORE: 4/10 LOCATION: Right pelvis hip FINDINGS: Examination of the right hip was performed with AP Pelvis. Mild degenerative changes right hip. No fr acture. Femoral neck intact.. The acetabulum is grossly intact. CONCLUSION: Mild degenerative change without fracture. Anjum Rodriguez MD on July 15, 2016 at 3:32 Board Certified Radiologist. This report was verified electronically.
== END 2016-07-15 05:56 | disposition home or self-care (01) ==
LOC: NEPE 02:12
DX: M25.551 Pain in right hip (principal)
CPT/HCPCS: 73502; 96372; 99283; J1885

== ENCOUNTER 2016-07-16 00:53 | Emergency (ER) | payer MEDICARE ==
[~2016-07-16] VITALS: Ht 172.7 cm; Wt 75.0 kg
[2016-07-16 01:00] VITALS: BP 140/89; PULSE 80; RESP 16; TEMP 98.7; O2SAT 96
--- NOTE | 2016-07-16 01:14 | PD ---
HPI Chief Complaint: weakness Time Seen by Provider: 01:11 Travel History International Travel<30 days: No Contact w/Intl Traveler<30days: No History of Present Illness HPI 50 year-old man, presents to the emergency department complaining of feeling lightheaded and nauseous. States he feels like this every day. Symptoms worsens 2 PM. He called the amounts today because he would like to get some help getting off home, would like to washout. No other complaints. History Past Medical History Narrative Medical From records, bipolar disorder, hypertension, diabetes. Patient really denies any medical history. PNEUMOCCOCAL Vaccine (Year): 3 Social History Alcohol Use: Yes (beer ) Tobacco Use: Yes (1ppd) Allergies-Medications (Allergen,Severity, Reaction): Coded Allergies: No Known Allergies (Verified , 07/15/16) Reported Meds & Prescriptions Reported Meds & Active Scripts Active Ibuprofen 800 Mg Tab 800 Mg PO Q6HR PRN Erythromycin Opth Oint 5 Mg/Gm Oint 1 Applic RIGHT EYE QID 7 Days Reported Lisinopril 20 Mg Tab 20 Mg PO DAILY Haldol Decanoate Inj (Haloperidol Decanoate) 50 Mg/Ml Inj 50 Mg IM Q28D Benztropine (Benztropine Mesylate) 2 Mg Tab 2 Mg PO BID Review of Systems Except as stated in HPI: all other systems reviewed are Neg Physical Exam Narrative GENERAL: Disheveled 50 year-old man, wearing. Prescribed, no acute distress. SKIN: Focused skin assessment warm/dry. CARDIOVASCULAR: Regular rate and rhythm. No murmur appreciated. RESPIRATORY: No accessory muscle use. Clear to auscultation. Breath sounds equal bilaterally. GASTROINTESTINAL: Abdomen soft, non-tender, nondistended. Hepatic and splenic margins not palpable. MUSCULOSKELETAL: No obvious deformities. No clubbing. No cyanosis. No edema. NEUROLOGICAL: Awake and alert. No obvious cranial nerve deficits. Motor grossly within normal limits. Normal speech. PSYCHIATRIC: Appropriate mood and affect; insight and judgment normal. [facility] Medical Decision Making Medical Screen Exam Complete: Yes Emergency Medical Condition: Yes Differential Diagnosis Homelessness Narrative Course Medical decision making Is a 50-year-old male presents emergency processes but had unsteady feels lightheaded at times. He states he feels like this every day. He has no acute complaints. The states he would like help "getting into a home". He'll be given resources. Diagnosis Primary Impression: Homelessness Additional Instructions: Return to the emergency department for any new or worsening symptoms. Disposition: 01 DISCHARGE HOME Condition: Stable Philip Storey MD July 16, 2016 01:14
[2016-07-16 02:56] VITALS: BP 136/82; PULSE 88; RESP 16; O2SAT 99
== END 2016-07-16 05:21 | disposition home or self-care (01) ==
LOC: NEPC 00:53 → NEPD 05:21
DX: Z59.0 Homelessness (principal); R11.0 Nausea; I10 Essential (primary) hypertension; E11.9 Type 2 diabetes mellitus without complications; F17.210 Nicotine dependence, cigarettes, uncomplicated
CPT/HCPCS: 99283

== ENCOUNTER 2016-07-19 22:31 | Emergency (ER) | payer MEDICARE ==
[~2016-07-19] VITALS: Ht 167.6 cm; Wt 80.0 kg
[2016-07-19 22:39] VITALS: BP 156/97; PULSE 70; RESP 16; TEMP 98.1; O2SAT 100
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
[2016-07-19] MEDS ORDERED: ACETAMINOPHEN 325 MG TAB PO ONE (23:45)
[2016-07-19 23:59] LABS: AUTOMATED NEUTROPHIL # 7.8 TH/MM3 (1.8-7.7); BASOPHIL # 0.1 TH/MM3 (0-0.2); BASOPHIL % 0.9 % (0.0-2.0); EOSINOPHIL # 0.2 TH/MM3 (0-0.4); EOSINOPHIL % 1.7 % (0.0-4.0); HEMATOCRIT 38.8 % (39.0-51.0); HEMO FLAGS DIFF FINAL; LYMPHOCYTE # 1.4 TH/MM3 (1.0-4.8); MEAN CORPUSCULAR HEMOGLOBIN 30.5 PG (27.0-34.0); MEAN CORPUSCULAR HGB CONC 33.9 % (32.0-36.0); MONO % 4.9 % (0.0-8.0); NEUT % 78.5 % (16.0-70.0); PLATELET COUNT 306 TH/MM3 (150-450); RED BLOOD COUNT 4.31 MIL/MM3 (4.50-5.90); RED CELL DISTRIBUTION WIDTH 15.1 % (11.6-17.2); WHITE BLOOD COUNT 9.9 TH/MM3 (4.0-11.0)
[2016-07-20] MEDS ORDERED: SODIUM CHLORID 0.9% 500 ML INJ 500 ML IV ONE
[2016-07-20] MEDS ORDERED: ACETAMINOPHEN 325 MG TAB PO ONE
--- NOTE | 2016-07-20 00:22 | RADRPT ---
EXAM DATE/TIME: 07/20/2016 00:08 [place] COMPARISON: CT BRAIN W/O CONTRAST, February 22, 2014, 16:13. INDICATIONS : Cephalgia. RADIATION DOSE: 47.11 CTDIvol (mGy) MEDICAL HISTORY : Hypertension. Sickle Cell disease. Diabetes. SURGICAL HISTORY : None. ENCOUNTER: Initial ACUITY: 1 day PAIN SCALE: 5/10 LOCATION: cranial TECHNIQUE: Multiple contiguous axial images were obtained of the head. Using automated exposure control and adj ustment of the mA and/or kV according to patient size, radiation dose was kept as low as reasonably a chievable to obtain optimal diagnostic quality images. FINDINGS: CEREBRUM: The ventricles are normal for age. No evidence of midline shift, mass lesion, hemorrhage or acute in farction. No extra-axial fluid collections are seen. POSTERIOR FOSSA: The cerebellum and brainstem are intact. The 4th ventricle is midline. The cerebellopontine angle i s unremarkable. EXTRACRANIAL: The visualized portion of the orbits is intact. SKULL: The calvaria is intact. No evidence of skull fracture. CONCLUSION: Normal examination. Yousif Snyder Jr., MD on July 20, 2016 at 0:19 Board Certified Radiologist. This report was verified electronically.
[2016-07-20 00:30] LABS: ALT (GPT) 20 U/L (12-78); ANION GAP 9 MEQ/L (5-15); AST (GOT) 19 U/L (15-37); BICARBONATE 27.8 MEQ/L (21.0-32.0); BLOOD UREA NITROGEN 9 MG/DL (7-18); CHLORIDE 104 MEQ/L (98-107); GLOMERULAR FILTRATION RATE 99 ML/MIN (>89); POTASSIUM 3.3 MEQ/L (3.5-5.1); SODIUM (NA) 141 MEQ/L (136-145)
[2016-07-20 00:32] LABS: ACETAMINOPHEN LESS THAN 2.0 MCG/ML (10.0-30.0); ALKALINE PHOSPHATASE 80 U/L (45-117); TOTAL BILIRUBIN ADULT 0.2 MG/DL (0.2-1.0)
[2016-07-20] MEDS ORDERED: POTASSIUM CHLORIDE 20 MEQ CONTROLLED RELEASE TAB PO ONE (01:30)
[2016-07-20 07:30] VITALS: BP 134/84; PULSE 81; RESP 17; TEMP 98.1; O2SAT 98
[2016-07-20 08:21] LABS: BLOOD, URINE NEG (NEG); GLUCOSE,URINE NEG (NEG); KETONE, URINE NEG (NEG); NITRITE,URINE NEG (NEG); URINE COLOR LIGHT-YELLOW (YELLW/STRAW)
[2016-07-20 08:23] LABS: COMMENT (UR) CULT NOT INDICATED; CULTURE IF INDICATED CULT NOT INDICATED
[2016-07-20 08:27] LABS: AMPHETAMINE, URINE NEG (NEG); BARBITURATES, URINE NEG (NEG); COCAINE, URINE NEG (NEG)
[2016-07-20 09:47] VITALS: BP 128/71; PULSE 78; RESP 18; TEMP 98; O2SAT 99
[2016-07-20 10:54] VITALS: BP 120/77; TEMP 97.8
--- NOTE | 2016-07-20 14:21 | PD.CONS ---
Provisional Diagnosis Admission Date [place] I. Adjustment disorder with depressed mood, cannabis use disorder, malingering with secondary gain of using in the hospital as a jail [place] II. Antisocial personality disorder [place] III. DM HTN [place] IV. Homeless, recently released from alf [place] V. 56 History of Present Illness Service Psychiatry Consult Requested By Primary Care Physician No Primary Care Physician HPI The patient is a 50-year-old man, homeless, unemployed, single , with self-reported psychiatric history bipolar disorder, schizophrenia, no previous psychiatric hospitalizations, no medications, no previous suicidal attempts, medical history hypertension and diabetes mellitus, who presents to the [facility] emergency department with a history of reportedly having a left-sided headache, thus he called ambulance services for transport to this facility. According to ambulance services the patient had reported having a fever, however on evaluation of his temperature is temperature was found to be normal. The patient has been to this facility on 6 occasions over the last week with various complaints including headache, eye pain, fever. The patient prior to that had not been in this area since 2013. The patient reports that he was in a [place] [facility] up until approximately a week ago. The patient reports that he needs his Cogentin prescription and a Haldol injection. Patient was seen for psychiatric evaluation, he reports good mood, he says that he is now rested and ready to be discharged. Denies headache, denies depressive symptoms, denies anxiety, denies perceptual disturbances and rafael. He says that he is planning to find a job and to find a girlfriend and restart his life. Patient says that he has been living in the [facility] since he was released from alf. Patient says that he was on Haldol injection in the past, however he doesn't know the doses, he doesn't know the prescriber, and in top of that he states that he just did it once. At this moment the patient denies suicidal ideation, homicidal ideation, visual and auditory hallucinations. Patient is fully oriented 3, no attention deficit, no gross cognitive impairment is observed. Patient reports occasional use of marijuana and alcohol, denies any other illicit drugs.. Review of Systems Constitutional: DENIES: Diaphoretic episodes, Fatigue, Fever, Weight gain, Weight loss, Chills, Dizziness, Change in appetite, Night Sweats Endocrine: DENIES: Heat/cold intolerance, Polydipsia, Polyuria, Polyphagia Eyes: DENIES: Blurred vision, Diplopia, Eye inflammation, Eye pain, Vision loss , Photosensitivity, Double Vision Ears, nose, mouth, throat: DENIES: Tinnitus, Hearing loss, Vertigo, Nasal discharge, Oral lesions, Throat pain, Hoarseness, Ear Pain, Running Nose, Epistaxis, Sinus Pain, Toothache, Odynophagia Respiratory: DENIES: Apneas, Cough, Snoring, Wheezing, Hemoptysis, Sputum production, Shortness of breath Cardiovascular: DENIES: Chest pain, Palpitations, Syncope, Dyspnea on Exertion , PND, Lower Extremity Edema, Orthopnea, Claudication Gastrointestinal: DENIES: Abdominal pain, Black stools, Bloody stools, Constipation, Diarrhea, Nausea, Vomiting, Difficulty Swallowing, Anorexia Genitourinary: DENIES: Sexual dysfunction, Urinary frequency, Urinary incontinence, Urgency, Hematuria, Dysuria, Nocturia, Penile Discharge, Testicular Pain, Testicular Swelling Musculoskeletal: DENIES: Joint pain, Muscle aches, Stiffness, Joint Swelling, Back pain, Neck pain Integumentary: DENIES: Abnormal pigmentation, Nail changes, Pruritus, Rash Hematologic/lymphatic: DENIES: Bruising, Lymphadenopathy Neurologic: DENIES: Abnormal gait, Headache, Localized weakness, Paresthesias, Seizures, Speech Problems, Tremor, Poor Balance Past Family Social History Coded Allergies: No Known Allergies (Verified , 07/19/16) Active Scripts Ibuprofen 800 Mg [id number] Mg PO Q6HR PRN (PAIN) #30 TAB Ref 0 Prov:Pilar Aguirre 07/12/16 Erythromycin Opth Oint 5 Mg/Gm Oint1 Applic RIGHT EYE QID 7 Days Ref 0 Prov:Pilar Aguirre 07/12/16 Reported Medications Lisinopril 20 Mg Tab20 Mg PO DAILY #30 TAB Ref 0 07/09/16 Haloperidol Decanoate Inj (Haldol Decanoate Inj)50 Mg/Ml Inj50 Mg IM Q28D #1 VIAL Ref 0 07/09/16 Benztropine 2 Mg Tab2 Mg PO BID #60 TAB Ref 0 07/09/16 Family History He denies psychiatric family history Social History Patient was born and raised in [place], he is homeless, he lives in the [facility], single, unemployed, has no family members, highest level of education is eighth grade, over 5 hospitalizations due to robbery, drug possession, trespassing Patient's Strengths (min. 2) Verbal communication Physical Exam No tremors, no ideas, no withdrawal, no psychomotor retardation or agitation, no gait disturbance Vital Signs Vital Signs Date Time Temp Pulse Resp B/P Pulse Ox O2 Delivery O2 Flow Rate FiO2 07/20/16 10:54 97.8 78 16 120/77 99 07/20/16 09:47 Room Air Lab Results Toxicology is negative, BAL was negative Mental Status Examination Appearance man, older than his stated age, disheveled, poor hygiene, he is calm and cooperative Speech: Unremarkable Orientation: x3 Thought Process: Logical, Goal Directed, Linear Thought Content: Unremarkable Language Fluent Fund of Knowledge Adequate for level of education Hallucination Type: None Attention and Concentration: Good Suicidal Ideation: No Previous Suicide Attempts: No Homicidal Ideation: No Previous Homicide Attempts: No Insight: Good Judgment: WNL Affect: Good Mood: Appropriate Motor Activity: Normal gait Assessment & Plan Problem List: (1) Adjustment disorder with depressed mood Assessment & Plan: At the moment of this psychiatric evaluation patient does not present any concerning, significant or acute subjective or objective symptomatology of depression, anxiety, rafael or psychosis. Patient denies suicidal and homicidal ideation, he denies visual and auditory hallucinations. Patient is goal and future oriented, he reports motivation "to find a job and a girlfriend". Patient is logical, coherent and relevant. No paranoia, no delusions, no flight of ideas, no ideas of reference, cognitive impairment, attention deficit present or observed. There is no indication for Haldol Decanoate or any other psychotropic at this moment. Due to the frequent visits to the patient to the ER with a very vague and inconsistent somatic complaints malingering with secondary gain of using the ED as a jail have to be carefully ruled out. Also due to his history of incarcerations, crime, lack of remorse in this using the hospital services a cluster B personality pathology has to be also considered. He does not meet criteria for psychiatric admission at this moment. Extensive psychoeducation, support provided. ICD Code: F43.21 (2) Unspecified personality disorder ICD Code: F60.9 Assessment & Plan Estimated LOS: Herbie Britton MD July 20, 2016 14:21
== END 2016-07-20 10:55 | disposition home or self-care (01) ==
LOC: NEPE 22:31
DX: R51 Headache (principal); F43.21 Adjustment disorder with depressed mood; F60.9 Personality disorder, unspecified; R50.9 Fever, unspecified; I10 Essential (primary) hypertension; E11.9 Type 2 diabetes mellitus without complications; F17.210 Nicotine dependence, cigarettes, uncomplicated; Z59.0 Homelessness
CPT/HCPCS: 70450; 80053; 80307; 81001; 85025; 85652; 99284; J7040